=== PATIENT | female | born 1955 | race African-American/Black ===

== ENCOUNTER 2020-03-29 20:36 | Inpatient (IN) | payer MEDICAID ==
[~2020-03-29] VITALS: Ht 160 cm; Wt 102.7 kg
[2020-03-29 23:02] LABS: BASOPHILS % 0.5 % (0.0-2.0); HEMATOCRIT. 37.7 % (36.0-48.0); HEMOGLOBIN. 11.7 g/dL (12.0-16.0); LYMPHOCYTES % 24.1 % (20.0-50.0); MEAN CORPUSCULAR HEMOGLOBIN 24.2 pg (28.0-32.0); MEAN CORPUSCULAR VOLUME 77.6 fL (81.0-99.0); MEAN PLATELET VOLUME 9.1 fl (7.4-10.4); MONOCYTES % 14.4 % (2.0-8.0); PLATELET 132 x1000/uL (130-400); RED BLOOD CELL COUNT 4.86 mill/uL (4.2-5.4)
[2020-03-29 23:07] LABS: CHLORIDE 103 mEq/L (98-107)
[2020-03-29 23:12] LABS: ETHANOL BLOOD < 10 mg/dL
[2020-03-30] MEDS ORDERED: ASPIRIN 81MG TABLET PO ONE (00:30)
[2020-03-30] MEDS ORDERED: FUROSEMIDE 20MG/2ML VIAL IVP ONE (00:30)
[2020-03-30 01:03] LABS: *AMPHETAMINES SCREEN URINE NEGATIVE (NEGATIVE); *BARBITURATES SCREEN URINE NEGATIVE (NEGATIVE); *BENZODIAZEPINES SCREEN URINE NEGATIVE (NEGATIVE); *COCAINE SCREEN URINE NEGATIVE (NEGATIVE)
[2020-03-30 01:04] LABS: CANNABINOID URINE SCREEN NEGATIVE (NEGATIVE); OPIATES URINE SCREEN NEGATIVE (NEGATIVE); PHENCYCLIDINE URINE SCREEN NEGATIVE (NEGATIVE)
[2020-03-30 01:10] LABS: METHADONE URINE SCREEN PRESUMTIVE POSITIVE (NEGATIVE)
[2020-03-30] MEDS ORDERED: CLONIDINE 0.1MG TABLET PO PRN (08:14)
[2020-03-30] MEDS ORDERED: ONDANSETRON HCL 4MG/2ML INJ IV PRN (14:30)
[2020-03-30] MEDS ORDERED: ACETAMINOPHEN 325MG TABLET PO PRN (14:30)
[2020-03-30] MEDS: FUROSEMIDE 40MG/4ML VIAL IVP SCH (15:00)
[2020-03-30 15:40] LABS: LDL CHOLESTEROL 73 mg/dL (5-100)
[2020-03-30 15:42] LABS: HDL CHOLESTEROL 41 mg/dL (40-59)
[2020-03-30 17:00] VITALS: BP 103/64
[2020-03-30 17:08] LABS: CLARITY URINE CLEAR (CLEAR); COLOR URINE YELLOW (YELLOW); KETONES URINE NEGATIVE (NEGATIVE); LEUKOCYTE ESTERASE URINE NEGATIVE (NEGATIVE); NITRITE URINE NEGATIVE (NEGATIVE); OCCULT BLOOD URINE NEGATIVE (NEGATIVE); PH URINE 7.5 (4.5-8.0); PROTEIN URINE NEGATIVE (NEGATIVE); SPECIFIC GRAVITY URINE 1.007 (1.005-1.030); UROBILINOGEN URINE 0.2 E.U./dL (0.2-1.0)
[2020-03-30 17:22] VITALS: BP 103/64
[2020-03-30] MEDS: LISINOPRIL 40MG TABLET PO SCH (18:15)
[2020-03-30] MEDS ORDERED: IPRATROPIUM/ALBUTEROL 0.5-3(2.5)MG/3ML NEB HHN PRN (18:30)
[2020-03-30 18:56] VITALS: BP 103/64
[2020-03-30] MEDS ORDERED: LISI40TA4 MT (19:09)
[2020-03-30] MEDS ORDERED: OMEP20CA14 MT (19:09)
[2020-03-30] MEDS ORDERED: HYDR-4134 MT (19:09)
[2020-03-30] MEDS ORDERED: METO-539 MT (19:09)
[2020-03-30 20:39] VITALS: BP 131/64
[2020-03-30] MEDS: HYDRALAZINE HCL 50MG TABLET PO SCH (21:28)
[2020-03-31] VITALS (7 sets, daily range): BP systolic 118–159; BP diastolic 46–78
[2020-03-31] MEDS ORDERED: METH10TA2 PO (01:45)
[2020-03-31] MEDS: HYDRALAZINE HCL 50MG TABLET PO SCH ×3 (05:19→21:00)
[2020-03-31] MEDS: ASPIRIN 81MG TABLET PO SCH (08:50)
[2020-03-31] MEDS: FUROSEMIDE 40MG/4ML VIAL IVP SCH (08:50)
[2020-03-31] MEDS: LISINOPRIL 40MG TABLET PO SCH (08:51)
[2020-03-31] MEDS ORDERED: FUROSEMIDE 40MG/4ML VIAL IVP NR (15:45)
[2020-04-01] VITALS: BP 135/75
[2020-04-01 04:00] VITALS: BP 121/55
[2020-04-01] MEDS: HYDRALAZINE HCL 50MG TABLET PO SCH ×2 (05:48→14:14)
[2020-04-01 06:15] LABS: CHLORIDE 101 mEq/L (98-107)
[2020-04-01] MEDS ORDERED: OMEPRAZOLE 20MG CAPSULE EXTENDED RELEASE PO SCH (07:20)
[2020-04-01 08:00] VITALS: BP 124/57
[2020-04-01] MEDS: LISINOPRIL 40MG TABLET PO SCH (08:30)
[2020-04-01] MEDS: ASPIRIN 81MG TABLET PO SCH (08:30)
[2020-04-01] MEDS ORDERED: METHADONE HCL 10MG TABLET PO SCH (09:00)
[2020-04-01] MEDS ORDERED: FUROSEMIDE 40MG TABLET PO SCH (09:00)
[2020-04-01 11:44] VITALS: BP 142/84
[2020-04-01] MEDS ORDERED: FURO40TA5 PO (13:55)
[2020-04-01] MEDS ORDERED: POTA20TA82 MT (13:55)
[2020-04-01 15:09] VITALS: BP 140/80
[2020-04-01 16:00] VITALS: BP_SYST 110; BP_SYST 119; BP_DIAS 57; BP_DIAS 78
[2020-04-02] MEDS ORDERED: NICO-645 TP (14:52)
== END 2020-04-01 18:43 | disposition home or self-care (01) | DRG 199 ==
LOC: ER 20:36 → 6WST 03-30 03:53 → EDBEDREQ 03-30 04:00 → EDBEDREQTM 03-30 04:00 → ENRESERV 03-30 15:00 → 6WST 03-30 20:24
PROVIDERS: ADMIT Internal Medicine; ATTEND Internal Medicine
DX: I16.1 Hypertensive emergency (principal); I11.0 Hypertensive heart disease with heart failure; I50.43 Acute on chronic combined systolic (congestive) and diastolic (congestive) heart failure; I20.0 Unstable angina; E66.9 Obesity, unspecified; R00.1 Bradycardia, unspecified; F17.210 Nicotine dependence, cigarettes, uncomplicated; Z68.41 Body mass index [BMI] 40.0-44.9, adult; Z90.710 Acquired absence of both cervix and uterus; Z88.5 Allergy status to narcotic agent; Z71.6 Tobacco abuse counseling; Z71.3 Dietary counseling and surveillance
CPT/HCPCS: 36415; 71045; 80048; 80053; 80061; 80305; 80320; 81003; 83880; 84443; 84484; 85025; 93005; 93306; 93970; 99285; J1940; G0480